=== PATIENT | male | born 1985 | race Caucasian/White ===

== ENCOUNTER 2017-08-09 17:59 | Emergency (ER) | payer OTHER ==
[2017-08-09 20:32] LABS: Basophils % (Auto) 0.7 % (0.0-1.8); Eosinophils % (Auto) 0.2 % (0.0-4.3); Hematocrit 46.7 % (35.5-45.6); Hemoglobin 16.3 gm/dl (11.8-15.2); Mean Corpuscular HGB Conc 35 % (32-34); Mean Corpuscular Hemoglobin 31 pg (28-32); Mean Corpuscular Volume 90 fl (84-94); Platelet Count 305 K/mm3 (140-440); Red Blood Count 5.22 M/mm3 (3.65-5.03); Red Cell Distribution Width 12.7 % (13.2-15.2)
[2017-08-09] MEDS ORDERED: NACL 0.9% 1000 ML 1,000 ML IV ONE ×2 (20:40→21:55)
[2017-08-09 20:52] LABS: Anion Gap 23 mmol/L; BUN/Creatinine Ratio 15; Blood Urea Nitrogen 9 mg/dL (9-20); Calcium 9.5 mg/dL (8.4-10.2); Carbon Dioxide 24 mmol/L (22-30); Chloride 90.7 mmol/L (98-107); Glucose 225 mg/dL (75-100); Potassium 4.2 mmol/L (3.6-5.0); Sodium 133 mmol/L (137-145)
--- NOTE | 2017-08-09 21:03 | Emergency Department Report ---
<ALEJA SANCHEZ - Last Filed: 08/10/17 03:13> ED Male HPI - General Chief complaint: Skin/Abscess/Foreign Body Stated complaint: PAINFUL URINATION, PENIS PAIN Time Seen by Provider: 08/09/17 20:40 Source: patient Mode of arrival: Ambulatory Limitations: Language Barrier - History of Present Illness Initial comments: 32-year-old male past medical history diabetes presents with 5 days of scrotal pain and rectal pain with worsening swelling/mass near his scrotum. Patient complains of subjective fever and chills denies abdominal pain nausea or vomiting. Patient is fully lucid awake alert and oriented 3. Patient states she is having difficulty sitting walking and defecating due to pain. MD Complaint: testicle pain, testicle swelling, groin pain Onset/Timin -: days(s) Location: right testicle, left testicle Radiation: other (rectal region) Severity: moderate Severity scale (0 -10): 7 Quality: sharp Consistency: constant Worsens with: none - Related Data Sexually active: No Allergies Allergy/AdvReac Type Severity Reaction Status Date / Time No Known Allergies Allergy Verified 08/09/17 19:19 ED Review of Systems ROS: Stated complaint: PAINFUL URINATION, PENIS PAIN Other details as noted in HPI Constitutional: denies: chills, fever Eyes: denies: eye pain, eye discharge, vision change ENT: denies: ear pain, throat pain Respiratory: denies: cough, shortness of breath, wheezing Cardiovascular: denies: chest pain, palpitations Endocrine: no symptoms reported Gastrointestinal: denies: abdominal pain, nausea, diarrhea Genitourinary: as per HPI, testicular pain, testicular mass. denies: urgency, dysuria Musculoskeletal: denies: back pain, joint swelling, arthralgia Skin: denies: rash, lesions Neurological: denies: headache, weakness, paresthesias Psychiatric: denies: anxiety, depression Hematological/Lymphatic: denies: easy bleeding, easy bruising ED Past Medical Hx - Past Medical History Previous Medical History?: Yes Hx Diabetes: Yes - Surgical History Past Surgical History?: Yes Additional Surgical History: RIGHT KNEE - Social History Smoking Status: Former Smoker Substance Use Type: Alcohol ED Physical Exam - General Limitations: Language Barrier General appearance: alert, in no apparent distress - Head Head exam: Present: atraumatic, normocephalic - Eye Eye exam: Present: normal appearance, PERRL, EOMI - ENT ENT exam: Present: mucous membranes moist - Neck Neck exam: Present: normal inspection - Respiratory Respiratory exam: Present: normal lung sounds bilaterally. Absent: respiratory distress - Cardiovascular Cardiovascular Exam: Present: regular rate, normal rhythm. Absent: systolic murmur, diastolic murmur, rubs, gallop - GI/Abdominal GI/Abdominal exam: Present: soft, normal bowel sounds - Rectal Rectal exam: Present: deferred - exam: Present: scrotal swelling, other (perianal abscess) - Expanded Exam Expanded exam: Testicular Tenderness: Left, Right, Testicular Swelling: Left, Right, Testicular Mass: Left, Right image: 1 - large abscess behind the scrotum, perianal abscess - Extremities Exam Extremities exam: Present: normal inspection - Back Exam Back exam: Present: normal inspection - Neurological Exam Neurological exam: Present: alert, oriented X3, CN II-XII intact, abnormal gait (antalgic gait) - Psychiatric Psychiatric exam: Present: normal affect, normal mood - Skin Skin exam: Present: warm, dry, intact, normal color. Absent: rash ED Course Vital Signs 08/09/17 08/09/17 08/09/17 19:19 21:35 22:15 Temperature 98.9 F 103.8 F H Pulse Rate 109 H 107 H Respiratory 20 18 18 Rate Blood Pressure 128/89 Blood Pressure 111/70 [Left] O2 Sat by Pulse 97 97 Oximetry 08/09/17 08/09/17 08/10/17 23:50 23:51 00:10 Temperature 99.7 F H Pulse Rate 103 H Respiratory 18 18 18 Rate Blood Pressure 112/72 Blood Pressure [Left] O2 Sat by Pulse 97 97 Oximetry 08/10/17 08/10/17 02:37 03:04 Temperature 99.0 F Pulse Rate 105 H Respiratory 18 18 Rate Blood Pressure 107/67 Blood Pressure [Left] O2 Sat by Pulse 97 Oximetry ED Medical Decision Making - Lab Data Result diagrams: 08/09/17 20:08 08/09/17 20:08 - Medical Decision Making A/P: Sepsis, perineal abscess, 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 As this abscess requires surigical intervention we consulted furnace combustion tester surgeon Dr. Munoz who spoke to Dr. Zambrano directly. As this case necessiattes immediate surgical intervention and we do not currently have furnace combustion tester I must transfer pt for stat surgical consult and eval/management 4- IV fluid resuscitation, pain control, empiric coverage with vancomycin and Zosyn and metronidazole 5- case discussed with [facility] center will transfer patient to [facility] ED for evaluation by urologist/uro-surgeon Dr. Valdivia. I updated Dr. Zambrano on arrangement for transfer and informed the pt of the need for emergent urologic evaluation. The patient agrees to this and understands my clinical concern. I advised the pt to be NPO for now. Critical Care Time: Yes Critical care time in (mins) excluding proc time.: 90 Critical care attestation.: If time is entered above; I have spent that time in minutes in the direct care of this critically ill patient, excluding procedure time. Critical Care Time: I spent 90 minutes to 2 hours in consultation with urology at [place], Gen. 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 This hospital does not have urology available for emergent consultation. I did discuss the case with the general surgeon on-call, Dr. Munoz, and I relayed the patient's CT scan findings, physical exam findings and laboratory studies. He recommended urgent urologic evaluation, which is the primary impetus for this patient to be transferred. Given the patient is septic and has an acute surgical emergency, he will benefit from transfer to a facility that has urology available for definitive management. ED Medical Decision Making - Lab Data Result diagrams: 08/09/17 20:08 08/09/17 20:08
[2017-08-09] MEDS ORDERED: ZOSYN/NS 4.5GM/100ML 4.5 GM/100 ML VIAL IV ONE (21:04)
[2017-08-09] MEDS ORDERED: MORPHINE IV ONE ×2 (21:12→23:49)
[2017-08-09] MEDS ORDERED: VANCOMYCIN PHARMACY TO DOSE IV SCH (22:00)
[2017-08-09] MEDS ORDERED: VANCOMYCIN 1,750 MG in NACL 0.9% 500 ML 500 ML IV SCH (22:30)
--- NOTE | 2017-08-09 22:43 | Cat Scan Report ---
FINAL REPORT PROCEDURE: CT ABDOMEN PELVIS W CON TECHNIQUE: Computerized axial tomography of the abdomen and pelvis was performed after the IV injection of iodinated nonionic contrast. HISTORY: perianal abscess/. R/o fournieres gas gangrene COMPARISON: No prior studies are available for comparison. FINDINGS: Visualized lower thorax: No significant abnormality. Liver: Normal size and attenuation. Spleen: Normal size and attenuation. Gallbladder and biliary system: Normal. Pancreas: Normal. Adrenals: Normal. Kidneys: Normal. GI tract: Normal. No dilated loops of large or small bowel. Appendix is normal Lymph nodes and mesentery: Normal. Vasculature: Normal. Bladder: Normal. Reproductive organs: Calcifications of the prostate. Peritoneum: No free fluid. Musculoskeletal structures: No significant abnormality. Other: There is a 4.8 x 2.8 cm fluid collection in the perineum extending from the base of the penis to the base of the scrotum. There is there is air seen trapped in skin fold. No other air in the soft tissues IMPRESSION: Fluid collection consistent with abscess of the perineum extending between the base of the penis in the base of the scrotum.
[2017-08-09] MEDS ORDERED: FLAGYL 500 MG/100 ML 500 MG/100 ML BAG IV SCH (23:00)
[2017-08-09] MEDS ORDERED: LACTATED RINGERS 1,000 ML IV ONE (23:24)
[2017-08-09] MEDS ORDERED: MORPHINE ONE (23:32)
[2017-08-10 02:39] VITALS: BP 107/67
[2017-08-10] MEDS ORDERED: MORPHINE IV ONE (03:03)
[2017-08-10] MEDS ORDERED: MORPHINE ONE (03:04)
== END 2017-08-10 03:02 | disposition other institution (70) ==
LOC: ED 17:59
DX: A41.9 Sepsis, unspecified organism (principal); L02.215 Cutaneous abscess of perineum; E11.9 Type 2 diabetes mellitus without complications
CPT/HCPCS: 36415; 74177; 80048; 82140; 85025; 87040; 96361; 96365; 96367; 96375; 96376; 99291; 99292; J2270; J2543; J7030; J7040; J7120; Q9967; J3370